=== PATIENT | female | born 1950 | race Caucasian/White ===

== ENCOUNTER 2017-06-19 12:23 | Inpatient (IN) ==
[2017-06-19] MEDS ORDERED: NORMAL SALINE 10 ML SYRINGE FLUSH IVP PRN ×3 (12:50→19:20)
[2017-06-19] MEDS ORDERED: IPRATROPIUM/ALBUTEROL SULFATE 3 ML NEB NEB ONE (13:05)
[2017-06-19 13:13] LABS: Hematocrit [HCT] 41.1 % (37.0-47.0); Hemoglobin [HGB] 11.9 g/dL (12.0-16.0); MEAN CORPUSCULAR HEMOGLOBIN 21.2 PG (27-31); MEAN CORPUSCULAR VOLUME 73.1 FL (81-99); MEAN PLATELET VOLUME 9.5 FL (7.4-12.2); RED BLOOD COUNT 5.62 10^6/uL (4.20-5.40)
[2017-06-19] MEDS: Sodium Chloride 0.9% 1,000 ML PRIMARY IV ONE ×2 (13:20→18:31)
[2017-06-19 13:24] LABS: PLATELET MORPHOLOGY COMMENT NORMAL MORPHOLOGY (NORM); RBC MORPHOLOGY COMMENT NORMAL MORPHOLOGY (NORM); WBC MORPHOLOGY COMMENT NORMAL MORPHOLOGY (NORM)
[2017-06-19 13:25] LABS: BAND NEUTROPHILS % 2 % (0-10); BASOPHILS % (MANUAL) 0 % (0-1); EOSINOPHILS % (MANUAL) 3 % (0-8); MONOCYTES % (MANUAL) 5 % (0-12); NEUTROPHILS % (MANUAL) 63 % (50-80)
[2017-06-19 13:28] LABS: BLOOD UREA NITROGEN 16 mg/dL (7-22); BUN/CREATININE RATIO 26.66 (6-20); SERUM ALBUMIN 3.5 g/dL (3.5-4.8)
--- NOTE | 2017-06-19 13:37 | DI ---
AP /LATERAL CHEST X-RAY, 06/19/2017 12:50 PM : Clinical History: Dyspnea. Previous Exam: 01/12/2009. There is no acute soft tissue or bony abnormality. There is an indwelling port inserted from the righ t subclavian approach and the catheter tip is in the superior vena cava. Heart size is normal. There is no recurrence of mass in the left upper lobe in the left lung is clear. There is pleural fluid in the dependent portion of the right thorax. There is either pleural fluid that is loculated that exten ds laterally and toward the apex or this represents extensive pleural thickening. There is an infiltr ate in the right upper lobe that has a fine nodular pattern without air bronchograms. There is right middle lobe and right lower lobe atelectasis. This patient had a lung cancer in the left apex and the nodular changes may reflect metastases to the right lung, primarily the right upper lobe. The right hilum cannot be assessed because of the density in the right lung. The left hilum is normal. Readin. Right pleural effusion, moderate, with either pleural thickening or loculated fluid extending lat erally and toward the apex. 2. There is a nodular infiltrate involving the right upper lobe, without air bronchograms. In view o f the history of lung cancer, this may represent multiple small metastases.
--- NOTE | 2017-06-19 14:12 | EKG ---
[address] [place] [address] Measurements Intervals [place] Rate: 113 P: 74 GA: 158 QRS: 94 QRSD: 90 T: 16 QT: 310 QTc: 377 Interpretive Statements SINUS TACHYCARDIA RIGHT AXIS DEVIATION LOW QRS VOLTAGE IN PRECORDIAL LEADS ST DEVIATION AND MODERATE T-WAVE ABNORMALITY, CONSIDER LATERAL ISCHEMIA ST DEVIATION AND MODERATE T-WAVE ABNORMALITY, CONSIDER INFERIOR ISCHEMIA No previous ECG available for comparison Electronically Signed On 06-19-17 15:22:53 [facility] by Brandon Suarez [email or web address]
[2017-06-19 14:13] LABS: VENOUS PH 7.32 (7.32-7.42)
[2017-06-19] MEDS ORDERED: Ertapenem Inj 1 GM in Sodium Chloride 0.9% 100 ML IV ONE (14:40)
--- NOTE | 2017-06-19 15:06 | DI ---
CT ANGIOGRAM OF THE CHEST, 06/19/2017 1:53 PM : Clinical History: Dyspnea. Elevated D-dimer test. Previous Exam: 04/04/2016. Scans are performed from the base of the neck to the lower lung bases following IV administration of 50 mL of Isovue 300. Proprietary automated bolus tracking software was used to verify the timing of t he injection. The base of the neck and thoracic inlet are normal. There are no abnormal axillary or supraclavicular nodes. There is adenopathy in the superior mediastinum with a large mass encircling the entire right hilum including the right mainstem bronchus and all distal branches to the upper, middle, and lower lobes. There is encasement of the distal portion of the right pulmonary artery, and the pulmonary vei ns leading to the left atrium. There is adenopathy extending to the right infrahilar region. There is narrowing of the superior vena cava proximal to the right atrium but the vena cava is surrounded by fat rather than tumor although the tumor may be pressing on the surrounding fat. The heart is normal. There is no evidence of pulmonary embolism or pulmonary infarction. There is a moderate to large ple ural effusion with probable pleural metastases. Only a portion of the lateral segment of the right mi ddle lobe and the superior segment of the right lower lobe are aerated. There is tumor metastases inv olving approximately half of the entire right upper lobe. There is no acute infiltrate in the left moraima ng and there are no new pulmonary nodules, but there has been significant increase in the interstitia l pattern consisting of Pawel A Pawel B lines. This increased severity of interstitial markings pro bably reflects lymphangitic tumor spread. The liver now demonstrates metastases ranging in size betwe en 5 mm up to 30 mm with a number that is too numerous to count. Metastases are also present in both adrenal glands. READIN. Extensive metastatic disease involving the mediastinum and right hilum with encasement by tumor m ass of the right pulmonary artery branches, right atrial branches, and the right mainstem bronchus an d bronchi to the right upper, middle, and lower lobes. There is a moderate to large malignant pleural effusion with small nodular tumor metastases to the right lung. Only a portion of the right upper lo be, right middle lobe, and right lower lobe are aerated, probably less than 50% of the total volume o f the right lung. 2. The increased Pawel A Pawel B lines in the left lung probably represent lymphangitic spread of tumor. There are multiple liver metastases too numerous to count as well as bilateral adrenal metasta ses. 3. There is no evidence of pulmonary embolism or pulmonary infarction.
[2017-06-19] MEDS ORDERED: Sodium Chloride 0.9% 1,000 ML PRIMARY IV ONE (16:16)
[2017-06-19] MEDS ORDERED: MORPHINE SULFATE 2 MG/1 ML IVP ONE ×2 (16:17→16:34)
[2017-06-19] MEDS ORDERED: MORPHINE SULFATE 2 MG/1 ML ONE (16:19)
[2017-06-19] MEDS ORDERED: MORPHINE SULFATE 4 MG/1 ML IVP ONE (18:13)
[2017-06-19] MEDS ORDERED: MORPHINE SULFATE 4 MG/1 ML ONE (18:14)
[2017-06-19 18:23] LABS: RBC,PLEURAL FLUID 0.036 10^6/uL; WBC,PLEURAL FLUID 0.568 10^3/uL
--- NOTE | 2017-06-19 18:49 | PDOC ---
HPI - History of Present Illness Date of Service: 06/19/17 Time of Service: 20:00 Chief Complaint: Shortness of breath the last few days History of Present Illness: This is a 67 years old female with medical history significant for history of non-small lung cancer stage III diagnosed in 2008 had chemoradiation and radiation, history of diabetes, history of hypertension, history of hyperlipidemia and history of nocturnal hypoxemia, apparently she's been going to the oncologist and she was told that she was still in remission when she went to see them back in December. The last 2 months she's been having issues with cough, she lost sense of taste, and eventually becoming more short of breath especially last few days. She said even going to the bathroom will make her really short of breath and she need to sit down for half an hour to recover from this because of continuous symptoms she came into the ER. In the ER she was found to have a right pleural effusion, metastasis to the lung and into the liver. She had a drainage of fluid and about 1600 ml was removed which provided some relief she said. However she is still short of breath. She also complained from pain in the back of the chest on the right side. The patient herself decided not to pursue further investigation or treatment. She is more interested in symptom control. She elected to be also DO NOT RESUSCITATE. Past Medical History Medical History: 1. History of non-small lung carcinoma left superior sulcus, stage III T3, N1, M0. Was diagnosed in 2008 status post chemoradiation therapy then. 2. History of diabetes was recently taken off . 3. Hypothyroidism. 4. Hypercholesterolemia. 5. Nocturnal hypoxemia on oxygen at night. 6. History of hypertension Surgical History: 1. Tonsillectomy. 2. Tubal ligation Pertinent Family History: Her brother did have lung cancer Past Social History: She smokes a pack-a-day no drugs doesn't drink. Lives by herself. Tobacco Use: Current Every Day Smoker In the Past 12 Months, Have Used or Abuse Any of the Following Substance: None Medication / Allergies Home Medications: Home Medications 3 Medication Instructions Recorded Confirmed Type Levothyroxine Sodium 1 tab PO DAILY #30 tab 02/22/17 06/19/17 Rx Metoprolol Succinate [Toprol Xl] 100 mg PO QD #30 tab 02/22/17 06/19/17 Rx fluoxetine 20 mg capsule 20 mg PO DAILY #30 cap 02/22/17 06/19/17 Rx simvastatin 10 mg tablet 10 mg PO QPM #30 tab 02/22/17 06/19/17 Rx Allergies/Adverse Reactions: Allergies 3 Allergy/AdvReac Type Severity Reaction Status Date / Time No Known Drug Allergies Allergy NOT Verified 06/19/17 12:28 APPLICABLE Review of Systems - Review of Systems All Systems: Reviewed & No Additional Complaints Except as Stated Exam - General General Appearance: Cooperative, Obese Additional General Exam Details: Looks chronically ill, pale - Head Head Exam: Normal Inspection, Atraumatic - Eye Eye Exam: POSITIVE: Normal Appearance - ENT ENT Exam: POSITIVE: Normal Exam - Neck Neck Exam: Normal Inspection - Respiratory Additional Respiratory Exam Details: (And decreased breath sound the right lower base - Cardiovascular Cardiovascular Exam: POSITIVE: RRR - GI/Abdominal GI/Abdominal Exam: POSITIVE: Normal Bowel Sounds, Non Tender, Non Distended, Soft, No Organomegaly - Rectal Rectal Exam: POSITIVE: Deferred - External Exam: POSITIVE: Deferred - Extremities Additional Extremities Exam Details: Edema noted in her lower extremities - Neurological Neurological Exam: POSITIVE: Alert, Oriented x 3, CN II-XII Intact, Moves All Extremities Equally - Psychiatric Psychiatric Exam: POSITIVE: Normal Affect - Integumentary Integumentary Exam: POSITIVE: Pallor Results - Labs CBC and BMP: 06/19/17 13:00 06/19/17 13:00 - Imaging Status: Report Reviewed by Me (CT chest 1. Extensive metastatic disease involving the mediastinum and right hilum with encasement by tumor mass of the right pulmonary artery branches, right atrial branches, and the right mainstem bronchus and bronchi to the right upper, middle, and lower lobes. There is a moderate to large malignant pleural effusion with small nodular tumor metastases to the right lung. Only a portion of the right upper lobe, right middle lobe, and right lower lobe are aerated, probably less than 50% of the total volume of the right lung. 2. The increased Pawel A Pawel B lines in the left lung probably represent lymphangitic spread of tumor. There are multiple liver metastases too numerous to count as well as bilateral adrenal metastases. chest X ray 1. Right pleural effusion, moderate, with either pleural thickening or loculated fluid extending laterally and toward the apex. 2. There is a nodular infiltrate involving the right upper lobe, without air bronchograms. In view of the history of lung cancer, this may represent multiple small metastases.) Assessment and Plan - Patient Problems (1) Pleural effusion, right Current Visit: Yes Status: Acute Comment: She is status post thoracocentesis with removal of 1600 ml of fluid, patient elected not to pursue more testing, also not to pursue more chemotherapy , she is more interested in symptom control. She elected to be DO NOT RESUSCITATE. I did tell her that will write for morphine as needed In case she have pain or respiratory distress. I did write for nebulizer. I did tell her that we will speak to the naval surface fire support planner in the morning and talked to her about hospice options at-home or hospice house. Code(s): J90 - Pleural effusion, not elsewhere classified
--- NOTE | 2017-06-19 18:53 | DI ---
EXAM: XR Chest, 1 View CLINICAL HISTORY: ITS.REASON post thoracentesis Physician Notes: Tech Comments: TECHNIQUE: Frontal view of the chest. COMPARISON: Chest x-ray 06/19/17 and 1312 FINDINGS: Lungs: Infiltrative changes in the right lung. Pulmonary nodules. Pleural space: No apparent pneumothorax. Right pleural effusion and pleural thickening. Heart: Unremarkable. Mediastinum: Unremarkable. Bones/joints: No acute fracture. Lymph nodes: Right hilar adenopathy/mass lesion. Tubes, lines and devices: Candace cath. IMPRESSION: 1. No apparent pneumothorax. 2. Right pleural effusion and pleural thickening.
[2017-06-19] MEDS ORDERED: CALCIUM CARBONATE 500 MG (TUMS) CHEWABLE TABLET PO PRN (19:20)
[2017-06-19] MEDS ORDERED: DOCUSATE 100 MG CAPSULE PO PRN (19:20)
[2017-06-19] MEDS ORDERED: LIDOCAINE W/ SODIUM BICARB 0.5 ML SYR SUBD PRN (19:20)
[2017-06-19] MEDS ORDERED: ONDANSETRON 4 MG/2 ML VIAL IVP PRN (19:20)
[2017-06-19] MEDS ORDERED: ACETAMINOPHEN 325 MG TABLET PO PRN (19:20)
[2017-06-19] MEDS ORDERED: LORazepam 1 MG TABLET PO PRN (19:28)
[2017-06-19] MEDS ORDERED: MORPHINE SULFATE 20 MG/1 ML ORAL SOLN PO PRN (19:35)
--- NOTE | 2017-06-19 20:05 | DI ---
ULTRASOUND LOCALIZATION FOR THORACENTESIS, 06/19/2017 5:38 PM Clinical History: Pleural effusion. Previous Exam: None at this facility. A "time out" session was performed to verify the patient's name and date of prior to initiatin g this procedure. The right thorax was scanned from the posterior approach with the patient sitting u pright. The optimal location for thoracentesis was identified and the skin was marked with indelible ink. Reading: Localization of optimal site for thoracentesis as above.
--- NOTE | 2017-06-20 01:37 | PDOC ---
Dyspnea HPI - General Chief Complaint: Respiratory Complaint Stated Complaint: CAN'T GET MY AIR Date Seen by Provider: 06/19/17 Time Seen by Provider: 16:00 Source: POSITIVE: Patient, RN/MD, Other (Son and daughters) Exam Limitations: POSITIVE: No limitations Treatment Prior to Arrival: REPORTS: None Nurse's Notes Reviewed & Considered: Yes - History of Present Illness Initial Comments: The patient is a 67-year-old female, brought to the emergency room by her daughters. Patient has a history of lung cancer, tobacco abuse and COPD. She is normally on 3 L/m of supplemental oxygen at night. Over the past several days, however, she has been using her oxygen continuously. She has been particularly more short of breath for the past 3 days. History of type II diabetes mellitus. Patient had radiation therapy and chemotherapy several years ago. Reportedly the lung cancer is "in operable" according to daughters. Patient continues to smoke 1-1/2 packs of cigarettes per day. Daughters think that the patient completed radiation therapy in 2010 and chemotherapy in 2009. Patient's oncologist is Dr. Matute in [place]. Daughter states that the patient had a CT scan of the chest done in [place] this past December. Patient does not have any chest or other pain. Patient lives alone. She does complain of feeling weak. No fevers or chills. No GI, or neurologic symptoms. On patient's arrival she is on 3 L by nasal cannula and her oxygen saturation was 83%. Patient was placed on nonrebreather and her saturations were 96%. Patient states that she does not want any cardiopulmonary resuscitation. Body Location Affected: REPORTS: Chest Timing: REPORTS: Gradual, Getting Worse Duration: <1 week Severity: Moderate (Dyspnea) Quality: REPORTS: Other (Patient denies any pain) Initiating Event: DENIES: Upper Respiratory Illness, Out of Medications, Sports , Exercise, Aspiration, Choking, Allergy, Exposure - Smoke, Exposure - Mold, Exposure - Other Allergen Context: REPORTS: Exertion (Patient is very sedentary due to shortness of breath ) Exacerbated By: REPORTS: Exertion Associated Symptoms: DENIES: Fever, Chills, Sweating, Chest Pain, Chest Discomfort, Left Chest, Right Chest, Central Chest, Chest Heaviness, Chest Tightness, Painful Breathing, Radiation to Back, Radiation to Jaw, Radiation to Arm, Bloody Cough, Productive Cough, Heart Racing, Leg Pain, Calf Pain, Ankle Swelling, Leg Swelling, Dizziness, Light-Headedness, Anxiety, Tingling - Hands, Tingling - Face, Muscle Spasms - Hands, Muscle Spasms - Feet Similar Symptoms Previously: No Recently seen/treated/hospitalized: No Any Prior Injuries Related to Current Complaint?: No - Patient Home Medications Home Medications: Home Medications Levothyroxine Sodium 1 tab PO DAILY #30 tab 02/22/17 Metoprolol Succinate [Toprol Xl] 100 mg PO QD #30 tab 02/22/17 fluoxetine 20 mg capsule 20 mg PO DAILY #30 cap 02/22/17 simvastatin 10 mg tablet 10 mg PO QPM #30 tab 02/22/17 - Patient Allergies Allergies/Adverse Reactions: Allergies 3 Allergy/AdvReac Type Severity Reaction Status Date / Time No Known Drug Allergies Allergy NOT Verified 06/19/17 12:28 APPLICABLE Past Medical History - heen HEENT History: Cataracts Cardiovascular History: Hypertension, Hyperlipidemia Respiratory History: Emphysema Additional Respiratory History: Lung cancer Gastrointestinal History: Denies History Genitourinary History: Denies History Endocrine History: Type 2 Diabetes (oral), Hypothyroidism Musculoskeletal History: Denies History Prosthesis or Implant: No Neurological History: Denies History Blood Disorders: Denies History Psychiatric History: Denies History History of Sexually Transmitted Diseases: No LMP: UNKNOWN Cancer History: Lung Cancer Treatment / Date(s) of Treatment: CHEMO/RADIATION CANCER FREE 2008 In Past Year Been Physically Harmed or Verbally Threatened: No History of MDRO: No History of Other Communicable Diseases: No Tobacco Use: Current Every Day Smoker Alcohol Use: None In the Past 12 Months, Have Used or Abuse Any Substance: None Previous Surgical History: Yes Type / Date of Surgery: RIGHT CATARACT/COLONOSCOPY AND LOBECTOMY IN 2009 FOR LUNG CATONSILLECTOMY AND TUBAL Anesthesia Reactions: No Malignant Hyperthermia: No Significant Family History: No pertinent family hx Past Medical History Reviewed: Reviewed - No Changes ROS - Limitations ROS Limitations: No Limitations Constitution: REPORTS: Weakness Cardiovascular: REPORTS: Denies Cardiac Symptoms Respiratory: REPORTS: Shortness Of Breath Neurological: REPORTS: Denies Neuro Symptoms Gastrointestinal: REPORTS: Denies GI Symptoms Endocrine: REPORTS: Denies Symptoms Musculoskeletal: REPORTS: Denies MS Symptoms Genitourinary: REPORTS: Denies Symptoms ENT: REPORTS: Denies Symptoms Skin: REPORTS: Denies Skin Symptoms Lympathic: REPORTS: Denies Lympathic Symptoms Immunologic: POSITIVE: Denies Symptoms Psychiatric: POSITIVE: Denies Psych Symptoms Dyspnea Physical Exam - General Appearance General Appearance: REPORTS: Alert, Cooperative, No Evidence of Trauma, Moderate Distress. DENIES: No Acute Distress - HEENT HEENT: POSITIVE: Head Inspection Nml, Eyes Inspection Nml, Ears Inspection Nml, Nose Inspection Nml, Oral/Dental Inspect. Nml, Pharynx Inspect. Nml, PERRL, EOMI - Neck Neck: REPORTS: Normal Inspection, No Carotid Bruit - Respiratory Respiratory: REPORTS: No Pleuritic Chest Pain, Speaks Full Sentences, No Pain on Inspiration, Dull on Percussion (Right), Decreased Air Movement (Right). DENIES: Breath Sounds Normal (Markedly diminished breath sounds right), Respiratory Distress (Moderate), Fatigue, Wheezes, Rales, Rhonchi, Prolonged Expirations, Accessory Muscle Use, Chest Wall Tenderness, Speaks Broken Sentences, Stridor, Respiratory Failure - Cardiovascular Cardiovascular: REPORTS: Regular Rate and Rhythm, Heart Sounds Normal, Equal Pulses, Strong Pulses, No Murmur, No Gallop, No Friction Rub, No JVD, Tachycardia (111/m; sinus tachycardia) Peripheral Pulses: Radial (R): 2+, Radial (L): 2+ - Abdomen Abdomen: Soft: (All Quadrants), Normal Bowel Sounds: (All Quadrants), Denies Tenderness: (All Quadrants), No Splenomegaly: (All Quadrants), No Hepatomegaly: (All Quadrants), No Guarding: (All Quadrants), No Rebound: (All Quadrants), No Palpable Pulse: (All Quadrants), No Palpabale Mass: (All Quadrants), No Distention: (All Quadrants), No Rigidity: (All Quadrants) - Skin Skin: REPORTS: Intact, Normal For Race, Warm, Dry, No Rash - Extremities Extremity: Non-Tender: (All Extremities), Normal ROM: (All Extremities), Normal Inspection: (All Extremities) - Neurological / Psychological Neurological: POSITIVE: Affect Apporpriate, Oriented X3, flower maker Normal As Tested, Motor Normal, Sensation Normal Images - Complete Complete: 1 - Decreased breath sounds Procedure - Additional Procedures Additional Procedures: Other (Thoracentesis performed by Dr. Galvin under ultrasonographic guidance, right thorax. 1600 mL of straw-colored fluid obtained. This was sent for cytology, Gram stain, culture and cell count. Please refer to Dr. Galvin's procedure note.) Dyspnea Progress - Results Reviewed by me Xrays/CTs/US Reviewed by me: Yes Discussed with Radiologist: Yes Radiology Findings: Chest x-ray shows a large pleural effusion on the right and infiltrates. CTA scan of the chest shows no pulmonary emboli. There is reported to be extensive metastatic disease involving the mediastinum and right hilum with encasement bite tumor mass of the right pulmonary artery branches, right atrial branches, and right mainstem bronchus and bronchi to the right upper middle and lower lobes. There is reported to be evidence of lymphangitic spread of the tumor and multiple liver metastases. I contacted the patient's oncologist in [place], Dr. Matute, reviewed the CT scan done in [place] in December, and all of these findings are new since December Lab Results Reviewed by Me: Yes (elevated d-dimer, blood cultures drawn, blood gas shows pH 7.32, PCO2 45) CBC and BMP: 06/19/17 13:00 06/19/17 13:00 EKG Interpreted/Reviewed By Me:: Yes (sinus tachycardia) EKG Interpretation:: POSITIVE: Normal Intervals, Normal [place], Normal QRS, Normal ST/T, Abnormal EKG. NEGATIVE: Normal Rate (Sinus tachycardia) - Patient's Progress Pain Medication Addressed: POSITIVE: Yes (Morphine sulfate, 4 mg IV) School/Work Release Addressed: POSITIVE: Not Applicable Re-Examine Time: 18:00 Re-Examine Comment: Patient states that she is breathing much easier after thoracentesis. Patient was given a DuoNeb nebulizer treatment, and this seemed to help as well. Oxygen saturation are being maintained around 92% on 3 L by nasal cannula. Patient is adamant that she wants no resuscitation and she states she wants no further chemotherapy. DO NOT RESUSCITATE document was just signed by patient in the presence of her son and 2 daughters. Patient may well not be able to care for herself at home in the future and hospice may be required. Case was discussed with the patient's oncologist in Dr. [place]ov[place] Mendoza Status: POSITIVE: Improved, Re-Examined Air Movement: POSITIVE: Fair - Consult Consult (If Yes, Name of Consulting MD & Time Called): Yes (,[facility], [id number] ) Counseled: POSITIVE: Patient, Family, RE: Lab Results, RE: Radiology Results, RE : DX Patient Care Time - Estimated PCT Patient Care Time (In Minutes): 65 Vital Signs - Recent Vital Signs Vital Signs: Vital Signs (Last 8 hours) Temp Pulse Resp BP Pulse Ox 06/19/17 21:00 97.8 F 100 14 99/50 99 06/19/17 19:01 97.6 F 111 H 24 146/59 - VS Reviewed Vital Signs Reviewed: Yes Discharge Clinical Impression: Pleural effusion, right, Diabetes mellitus type 2 in obese, Lung cancer Condition: Fair Date Decision to Admit to Inpatient: 06/19/17 Time Decision to Admit to Inpatient: 18:00
[2017-06-20] MEDS ORDERED: IPRATROPIUM/ALBUTEROL SULFATE 3 ML NEB NEB PRN (07:57)
[2017-06-20] MEDS ORDERED: METOPROLOL SUCCINATE 100 MG SR 24H TABLET PO SCH (09:00)
[2017-06-20] MEDS: LEVOTHYROXINE 100 MCG TABLET PO SCH (09:15)
[2017-06-20] MEDS: FLUoxetine 20 MG CAPSULE PO SCH (09:15)
--- NOTE | 2017-06-20 13:05 | PDOC(PROG) ---
Date and Time of Service: 06/20/2017 1 PM Interval History: Subjective Her breathing she said is still short but better than yesterday. She has some pain in her chest but apparently not too bad. Denying other symptoms. She is on 15 L nonrebreather. Objective : Data - Labs CBC and BMP: 06/19/17 13:00 06/19/17 13:00 Objective : Exam - General General Appearance: Obese Additional General Exam Details: Appears ill tired - Eye Eye Exam: Normal Appearance - ENT ENT Exam: Normal Exam - Respiratory Additional Respiratory Exam Details: Decreased breath sound at the bases - Cardiovascular Cardiovascular Exam: RRR - GI/Abdominal GI/Abdominal Exam: Normal Bowel Sounds, Non Tender, Non Distended, Soft - Rectal Rectal Exam: Deferred - External Exam: Deferred - Neurological Neurological Exam: Alert, Oriented x 3, CN II-XII Intact, Moves All Extremities Equally - Psychiatric Psychiatric Exam: Flat Affect - Integumentary Integumentary Exam: Pallor Assessment and Plan - Patient Problems (1) Pleural effusion, right Current Visit: Yes Status: Acute Comment: The fluid is an exudate likely secondary to recurrence of malignancy. LDH is elevated. Protein level is pending. We did send for cytology. Patient elected not to have any treatment. I did speak with the load planner to talk to the family and give option about comfort care. Code(s): J90 - Pleural effusion, not elsewhere classified (2) H/O malignant neoplasm of lung Current Visit: No Status: Chronic Comment: There is pain medication written for her for discomfort or shortness of breath or pain. Code(s): Z85.118 - Personal history of other malignant neoplasm of bronchus and lung
[2017-06-20] MEDS ORDERED: HEPARIN 500 UNIT/5 ML SYRINGE FOR CENTRAL LINE IVP ONE (14:56)
[2017-06-20] MEDS: MORPHINE SULFATE 2 MG/1 ML IVP PRN (14:58)
[2017-06-21] MEDS: LEVOTHYROXINE 100 MCG TABLET PO SCH (05:12)
[2017-06-21] MEDS: FLUoxetine 20 MG CAPSULE PO SCH (09:30)
--- NOTE | 2017-06-21 14:55 | PDOC(PROG) ---
Date and Time of Service: 06/21/2017, 1450 Interval History: Patient seen with hospice today. Shortness breath is better, pleuritic pain is better after pleural effusion drainage. No chest pain. Patient would like to do hospice, and would like to do it at home. She is somewhat nervous about reaccumulation of her malignant pleural effusion, and would want a Pleurx drain placed. She states to me her main goal is comfort in her remaining days, she is not so concerned about what her oxygen saturation is just so long as she doesn't feel quite as short of breath. Objective : Data - Labs CBC and BMP: 06/19/17 13:00 06/19/17 13:00 Objective : Exam - General General Appearance: No Acute Distress, Cooperative Additional General Exam Details: Vital Signs - Last Taken Temperature 97.0 F 06/21/17 00:43 Pulse Rate 75 06/21/17 00:43 Respiratory Rate 20 06/21/17 07:00 Blood Pressure 102/41 06/21/17 00:43 Pulse Ox 90 06/21/17 02:16 - Head Head Exam: Normal Inspection, Normocephalic, Atraumatic - Eye Eye Exam: No Scleral Icterus - ENT ENT Exam: Mucous Membranes Moist - Respiratory Respiratory Exam: Breathing Non Labored, Coarse Breath Sounds Additional Respiratory Exam Details: Diminished breath sounds in the bases. - Cardiovascular Cardiovascular Exam: RRR, No Murmur, No Clicks, No Gallops, No Rubs, No JVD - GI/Abdominal GI/Abdominal Exam: Normal Bowel Sounds, Non Tender, Non Distended, Soft - Extremities Extremities Exam: No Cyanosis Present, Clubbing Present, +1 Edema - Neurological Neurological Exam: Alert, Oriented x 3, No Facial Droop, Speech Intact / Clear, Moves All Extremities Equally - Psychiatric Psychiatric Exam: Normal Affect, Normal Mood Assessment and Plan - Patient Problems (1) Lung cancer Current Visit: Yes Status: Acute Code(s): C34.90 - Malignant neoplasm of unspecified part of unspecified bronchus or lung Qualifiers: Laterality: right Lung location: overlapping sites Qualified Code(s): C34.81 - Malignant neoplasm of overlapping sites of right bronchus and lung (2) H/O malignant neoplasm of lung Current Visit: No Status: Chronic Code(s): Z85.118 - Personal history of other malignant neoplasm of bronchus and lung (3) Pleural effusion, right Current Visit: Yes Status: Acute Code(s): J90 - Pleural effusion, not elsewhere classified (4) COPD (chronic obstructive pulmonary disease) Current Visit: Yes Status: Acute Code(s): J44.9 - Chronic obstructive pulmonary disease, unspecified Qualifiers: COPD type: emphysema Emphysema type: unspecified Qualified Code(s): J43.9 - Emphysema, unspecified (5) Hypothyroidism Current Visit: Yes Status: Chronic Onset Date: 10/12/11 Code(s): E03.9 - Hypothyroidism, unspecified Qualifiers: Hypothyroidism type: acquired Qualified Code(s): E03.9 - Hypothyroidism, unspecified; E03.9 - Hypothyroidism, unspecified; E03.9 - Hypothyroidism, unspecified (6) Essential hypertension Current Visit: Yes Status: Chronic Onset Date: 10/12/11 Code(s): I10 - Essential (primary) hypertension - Assessment / Plan Additional Assessment/Plan Details: We will try to arrange for some high flow oxygen. Keep it at 10 L and no higher than that. As long as she is comfortable, I think the goals of therapy will be met in hospice. My biggest worry is whether or not she'll need a Pleurx catheter. I will try to make arrangements with our radiologist over the next few weeks to have this placed showed pleural effusion reaccumulated. I will check a chest x-ray tomorrow to recheck that pleural effusion. Bedside commode for home. Morphine for pain. Eventual discharge to hospice, likely tomorrow to home hospice.
[2017-06-21] MEDS: MORPHINE SULFATE 2 MG/1 ML IVP PRN (17:58)
[2017-06-21 20:04] VITALS: BP 101/50
[2017-06-22] MEDS: LEVOTHYROXINE 100 MCG TABLET PO SCH (04:53)
[2017-06-22 07:20] VITALS: RESP 16; TEMP 97.7; O2SAT 94
--- NOTE | 2017-06-22 08:51 | DI ---
EXAM: XR Chest, 2 Views CLINICAL HISTORY: Pleural effusion. TECHNIQUE: Frontal and lateral views of the chest. COMPARISON: June 19, 2017. FINDINGS: Stable right-sided Port-A-Cath. Again noted is loculated appearing effusion on the right with patchy infiltrates and mass/masslike consolidation in the medial right hemithorax. Left lung is relatively clear. IMPRESSION: Little interval change in loculated right pleural effusion with patchy infiltrates and mass or masslike consolidation in the medial right hemithorax.
[2017-06-22] MEDS: FLUoxetine 20 MG CAPSULE PO SCH (08:54)
--- NOTE | 2017-06-22 11:10 | DCSUMMARY ---
Hospitalization Summary Admit Date: 06/19/2017 Discharge Date: 06/22/17 Primary Diagnosis:: metastatic lung cancer, terminal Hospital Course: This very pleasant 59-year-old female that presented with extreme shortness of breath, was found to have strong suspicion of metastatic lung cancer on CT scan with lymphangitic spread. Patient had a large pleural effusion that required thoracentesis to help relieve shortness of breath and over 1600 MLS was removed. The patient opted for hospice care, and wants to do it at home. She has a very supportive family that we'll help her with that. Morphine did help with pain here. He also helped relieve some shortness of breath symptoms. Our big issue is that the pleural effusion is reaccumulating, and the patient will likely need placement of a Pleurx drain. We are making arrangements for that to happen. We will call the patient this week to have that arranged prior to the patient's entry into home hospice care. We discussed medications, and I'm having the patient stopped everything except her antidepressant. 10 L of oxygen will be prescribed at the time of discharge. We also referred do not's, a bedside commode, and we will provide a wheelchair for the patient at home. Today, no complains of chest pain, pain is controlled, shortness breath is about the same, no nausea or vomiting. Assessment and Plan: 1. As per discharge assessments noted 2. Disposition: Patient is discharged home for eventual home hospice 3. Condition on discharge, stable and improved. But condition is terminal 4. Diet: regular diet 5. Activities: resume normal activities 6. Follow-Up: 1. As per patient discretion 2. 7. Medications at the Time of Discharge: Home Medications 3 Medication Instructions Recorded Confirmed Type fluoxetine 20 mg capsule 20 mg PO DAILY #30 cap 02/22/17 06/19/17 Rx Albuterol/Ipratrop Neb Soln 3 ml NEB QID PRN #120 ampul.neb 06/22/17 Rx [Duoneb Neb Soln] Guaifenesin [Mucinex] 1,200 mg PO BID #60 tab.er.12h 06/22/17 Rx LORazepam Tab [Ativan Tab] 1 mg PO TID PRN #90 tab 06/22/17 Rx Morphine Liquid [MSIR Liquid] 10 - 20 mg PO Q2H PRN #120 06/22/17 Rx oral.syrin Polyeth Glycol 3350 Packet 17 gm PO DAILY #30 powd.pack 06/22/17 Rx [Miralax Packet] 8. Time, care, counseling and coordination of care for this discharge is greater than 30 minutes. Exam - Vitals Vital Signs: Vital Signs Temperature 97.7 F Temperature Source Oral Pulse Rate [Apical] 94 Pulse Rate [Pulse Oximeter] 92 Respiratory Rate 16 Blood Pressure [Left Arm] 101/50 Pulse Ox 94 Oxygen Flow Rate 10 Oxygen Delivery Method Oxymask Height 5 ft 2 in Weight 250 lb - General General Appearance: No Acute Distress, Cooperative - Eye Eye Exam: POSITIVE: No Scleral Icterus - ENT ENT Exam: POSITIVE: Mucous Membranes Moist - Respiratory Respiratory Exam: POSITIVE: Decreased Breath Sounds, Wheezes, Coarse Breath Sounds - Cardiovascular Cardiovascular Exam: POSITIVE: RRR, No Murmur, No Clicks, No Gallops, No Rubs, No JVD - GI/Abdominal GI/Abdominal Exam: POSITIVE: Normal Bowel Sounds, Non Tender, Non Distended, Soft - Extremities Extremities Exam: POSITIVE: No Clubbing Present, No Cyanosis Present, +1 Edema - Neurological Neurological Exam: POSITIVE: Alert, Oriented x 3, No Facial Droop, Speech Intact / Clear, Moves All Extremities Equally Data Peritnent Studies: 06/19/17 06/19/17 06/19/17 13:00 13:00 13:00 WBC 7.51 Hgb 11.9 L Hct 41.1 Plt Count 218 Neutrophils % (Manual) 63 Band Neutrophils % 2 D-Dimer 1.23 H VBG pH VBG pCO2 VBG HCO3 VBG Base Excess Sodium 130 L Potassium 4.4 Chloride 91 L Carbon Dioxide 24 BUN 16 Creatinine 0.6 Glucose 94 Lactic Acid Calcium 9.0 Magnesium 1.7 Total Bilirubin 1.6 H AST 69 H ALT 36 Alkaline Phosphatase 126 Troponin I C-Reactive Protein 6.1 H NT-Pro-B Natriuret Pep 846 H Total Protein 6.1 Albumin 3.5 Globulin 2.7 Fluid Total Protein Fluid LDH Pleural WBC Pleural RBC 06/19/17 06/19/17 06/19/17 13:00 13:00 13:14 WBC Hgb Hct Plt Count Neutrophils % (Manual) Band Neutrophils % D-Dimer VBG pH 7.32 VBG pCO2 45 VBG HCO3 23 VBG Base Excess -3 L Sodium Potassium Chloride Carbon Dioxide BUN Creatinine Glucose Lactic Acid 1.5 Calcium Magnesium Total Bilirubin AST ALT Alkaline Phosphatase Troponin I < 0.012 C-Reactive Protein NT-Pro-B Natriuret Pep Total Protein Albumin Globulin Fluid Total Protein Fluid LDH Pleural WBC Pleural RBC 06/19/17 06/19/17 06/20/17 17:28 17:28 13:01 WBC Hgb Hct Plt Count Neutrophils % (Manual) Band Neutrophils % D-Dimer VBG pH VBG pCO2 VBG HCO3 VBG Base Excess Sodium Potassium Chloride Carbon Dioxide BUN Creatinine Glucose Lactic Acid Calcium Magnesium Total Bilirubin AST ALT Alkaline Phosphatase Troponin I C-Reactive Protein NT-Pro-B Natriuret Pep Total Protein Albumin Globulin Fluid Total Protein 3.1 Fluid LDH 1480 Pleural WBC 0.568 Pleural RBC 0.[address] [place] [address] PH: DD: [phone] FAX: [phone] ~DIAGNOSTIC IMAGING REPORT~ Patient: Jessica Russell : 1950 Sex: F Age: 67 Exam Name: CT CTA Chest Non-Coronary [facility] Exam Date: 06/19/17 Report # : [id number] CPT Code: 75785 EMR/MR #: [id number] Ordering: TANJA AVILA Admiting: Primary: Elgin Boss MD. Attending: Signed CT ANGIOGRAM OF THE CHEST, 06/19/2017 1:53 PM : Clinical History: Dyspnea. Elevated D-dimer test. Previous Exam: 04/04/2016. Scans are performed from the base of the neck to the lower lung bases following IV administration of 50 mL of Isovue 300. Proprietary automated bolus tracking software was used to verify the timing of the injection. The base of the neck and thoracic inlet are normal. There are no abnormal axillary or supraclavicular nodes. There is adenopathy in the superior mediastinum with a large mass encircling the entire right hilum including the right mainstem bronchus and all distal branches to the upper, middle, and lower lobes. There is encasement of the distal portion of the right pulmonary artery, and the pulmonary veins leading to the left atrium. There is adenopathy extending to the right infrahilar region. There is narrowing of the superior vena cava proximal to the right atrium but the vena cava is surrounded by fat rather than tumor although the tumor may be pressing on the surrounding fat. The heart is normal. There is no evidence of pulmonary embolism or pulmonary infarction. There is a moderate to large pleural effusion with probable pleural metastases. Only a portion of the lateral segment of the right middle lobe and the superior segment of the right lower lobe are aerated. There is tumor metastases involving approximately half of the entire right upper lobe. There is no acute infiltrate in the left lung and there are no new pulmonary nodules, but there has been significant increase in the interstitial pattern consisting of Pawel A Pawel B lines. This increased severity of interstitial markings probably reflects lymphangitic tumor spread. The liver now demonstrates metastases ranging in size between 5 mm up to 30 mm with a number that is too numerous to count. Metastases are also present in both adrenal glands. READIN. Extensive metastatic disease involving the mediastinum and right hilum with encasement by tumor mass of the right pulmonary artery branches, right atrial branches, and the right mainstem bronchus and bronchi to the right upper, middle , and lower lobes. There is a moderate to large malignant pleural effusion with small nodular tumor metastases to the right lung. Only a portion of the right upper lobe, right middle lobe, and right lower lobe are aerated, probably less than 50% of the total volume of the right lung. 2. The increased Pawel A Pawel B lines in the left lung probably represent lymphangitic spread of tumor. There are multiple liver metastases too numerous to count as well as bilateral adrenal metastases. 3. There is no evidence of pulmonary embolism or pulmonary infarction. Dictated By: 06/19/17 1441 LINDA JO MD. Signed By: 06/19/17 1506 LINDA JO MD. Patient Problems - Patient Problem List (1) Lung cancer Current Visit: Yes Status: Acute Code(s): C34.90 - Malignant neoplasm of unspecified part of unspecified bronchus or lung Qualifiers: Laterality: right Lung location: overlapping sites Qualified Code(s): C34.81 - Malignant neoplasm of overlapping sites of right bronchus and lung Category: Medical (2) H/O malignant neoplasm of lung Current Visit: No Status: Chronic Code(s): Z85.118 - Personal history of other malignant neoplasm of bronchus and lung Category: Medical (3) Pleural effusion, right Current Visit: Yes Status: Acute Code(s): J90 - Pleural effusion, not elsewhere classified Category: Medical (4) COPD (chronic obstructive pulmonary disease) Current Visit: Yes Status: Acute Code(s): J44.9 - Chronic obstructive pulmonary disease, unspecified Qualifiers: COPD type: emphysema Emphysema type: unspecified Qualified Code(s): J43.9 - Emphysema, unspecified Category: Medical (5) Hypothyroidism Current Visit: Yes Status: Chronic Onset Date: 10/12/11 Code(s): E03.9 - Hypothyroidism, unspecified Qualifiers: Hypothyroidism type: acquired Qualified Code(s): E03.9 - Hypothyroidism, unspecified; E03.9 - Hypothyroidism, unspecified; E03.9 - Hypothyroidism, unspecified Category: Medical (6) Essential hypertension Current Visit: Yes Status: Chronic Onset Date: 10/12/11 Code(s): I10 - Essential (primary) hypertension Category: Medical
[2017-06-23 00:05] LABS: SOURCE, BODY FLUID ALBUMIN PLEURAL
== END 2017-06-22 12:08 | disposition home or self-care (01) | DRG 187 ==
LOC: ER 12:23 → MED/SURG 18:21
PROVIDERS: ADMIT Internal Medicine; ATTEND Internal Medicine